=== PATIENT | male | born 1980 | race Two or more races ===

== ENCOUNTER 2017-08-01 19:22 | Emergency (ER) | payer MEDICAID ==
[~2017-08-01] VITALS: Ht 167.6 cm; Wt 127.0 kg
[2017-08-01] MEDS ORDERED: SODIUM CHLORIDE 0.9% 1,000 ML IVB ONE (19:42)
[2017-08-01 20:02] LABS: Urine Bacteria NONE SEEN /hpf (None Seen); Urine Blood Negative /uL (Negative); Urine Mucus FEW (None Seen); Urine Specific Gravity 1.005 (1.001-1.035); Urine WBC 1 /hpf (0 - 3)
[2017-08-01 20:13] LABS: Basophils # (auto) 0.1 uL; Basophils % (auto) 0.9 % (0.0-2.0); Eosinophils # (auto) 0.1 uL; Eosinophils % (auto) 1.1 % (0.0-7.0); Hematocrit 47.1 % (41.0-53.0); Hemoglobin 16.2 g/dL (13.5-17.5); Lymphocytes # (auto) 2.9 uL; Lymphocytes % (auto) 43.9 % (10.0-50.0); Mean Corpuscular Hemoglobin 33.8 pg (28.0-32.0); Mean Corpuscular Hgb Conc. 34.5 g/dL (32.0-36.0); Mean Corpuscular Volume 98.1 fL (80.0-100.0); Monocytes # (auto) 0.4 uL; Monocytes % (auto) 5.9 % (0.0-12.0); Neutrophils # (auto) 3.2 uL; Neutrophils % (auto) 48.2 % (37.0-80.0); Nucleated Red Blood Cells % 0.1 %; Platelet Count (auto) 184 10^3/uL (140-450); Red Cell Distribution Width 15.5 % (11.8-14.3); White Blood Cell 6.7 10^3/uL (4.4-10.8)
[2017-08-01 20:20] LABS: Amphetamine Screen, Urine NEGATIVE (NEGATIVE); Barbiturate Scree,Urine NEGATIVE (NEGATIVE); Benzodiazephine Screen, Urine NEGATIVE (NEGATIVE); Cannabinoid Screen, Urine NEGATIVE (NEGATIVE); Cocaine Screen, Urine NEGATIVE (NEGATIVE); Opiate Scree,Urine NEGATIVE (NEGATIVE); Phencyclidine Screen, Urine NEGATIVE (NEGATIVE)
[2017-08-01 20:26] LABS: Albumin 3.3 g/dL (3.4-5.0); BUN/Creatinine Ratio 10.4; Calcium 7.9 mg/dL (8.5-10.1); Potassium 3.6 mmol/L (3.5-5.1)
[2017-08-01 20:28] LABS: Bilirubin, Total 0.4 mg/dL (0.2-1.0); Total Protein 8.2 g/dL (6.4-8.2)
[2017-08-01] MEDS ORDERED: PANTOPRAZOLE 40 MG/10 ML VIAL IV ONE (21:00)
[2017-08-01] MEDS ORDERED: LORazepam 2MG/ML-1ML VIAL IV ONE (21:00)
[2017-08-01] MEDS ORDERED: MVI in SODIUM CHLORIDE 0.9% 1,010 ML ONE (21:05)
[2017-08-01] MEDS ORDERED: THIAMINE HCL 100 MG TAB ONE (21:06)
[2017-08-01 21:24] LABS: Amylase 25 U/L (25-115); Lipase 173 U/L (73-393); Magnesium 2.3 mg/dL (1.6-2.6)
[2017-08-01] MEDS ORDERED: THIAMINE HCL 100 MG TAB PO ONE (21:30)
[2017-08-01] MEDS ORDERED: NALBUPHINE HCL 10 MG/1ml INJECTION IV ONE (22:00)
[2017-08-01 22:45] VITALS: BP 128/91
[2017-08-02] MEDS ORDERED: THIAMINE INJ 100 MG, MULTIPLE VITAMIN 10 ML, FOLIC ACID 1 MG, MAGNESIUM SULF SDV 50% 8 ... IV SCH ×10 (12:00)
== END 2017-08-02 00:45 | disposition home or self-care (01) ==
LOC: EDBD 19:22 → ER 19:25
DX: F10.129 Alcohol abuse with intoxication, unspecified (principal); G92 Toxic encephalopathy; F41.1 Generalized anxiety disorder; F17.210 Nicotine dependence, cigarettes, uncomplicated; F32.9 Major depressive disorder, single episode, unspecified
CPT/HCPCS: 36415; 80053; 80307; 80320; 81001; 82150; 83690; 83735; 84484; 85025; 96361; 96365; 96366; 96375; 99285; C9113; J2060; J2300; J3411; J3475; J7030

== ENCOUNTER 2021-08-18 08:05 | Emergency (ER) | payer MEDICAID ==
[~2021-08-18] VITALS: Ht 170.2 cm; Wt 113.4 kg
[2021-08-18] MEDS ORDERED: CYCL-837 PO (09:57)
[2021-08-18] MEDS ORDERED: ACE3T PO (09:58)
[2021-08-18] MEDS ORDERED: KETOROLAC TROMETH 60MG/2ML VIAL IM ONE (10:00)
[2021-08-18 10:58] VITALS: BP 116/82
== END 2021-08-18 11:01 | disposition home or self-care (01) ==
LOC: ER 08:05
DX: M54.42 Lumbago with sciatica, left side (principal); F17.210 Nicotine dependence, cigarettes, uncomplicated
CPT/HCPCS: 72100; 96372; 99283; J1885

== ENCOUNTER 2022-07-14 08:07 | Emergency (ER) | payer MEDICAID ==
[~2022-07-14] VITALS: Ht 170.2 cm; Wt 112.0 kg
[~2022-07-14 08:07] MED LIST: ACE3T PO; CYCL-837 PO
[2022-07-14] MEDS ORDERED: ASPirin 81 mg TAB PO ONE (08:30)
[2022-07-14 08:35] LABS: Basophils # (auto) 0.1 10 ^3/uL (0-0.2); Basophils % (auto) 0.7 % (0.0-2.0); Eosinophils # (auto) 0.1 10 ^3/uL (0-0.8); Eosinophils % (auto) 1.4 % (0.0-7.0); Hematocrit 45.8 % (41.0-53.0); Lymphocytes # (auto) 1.5 10 ^3/uL (0.4-5.4); Lymphocytes % (auto) 18.1 % (10.0-50.0); Mean Corpuscular Hemoglobin 32.8 pg (28.0-32.0); Mean Corpuscular Hgb Conc. 34.9 g/dL (32.0-36.0); Mean Corpuscular Volume 94.2 fL (80.0-100.0); Monocytes # (auto) 0.5 10 ^3/uL (0-1.3); Monocytes % (auto) 6.3 % (0.0-12.0); Neutrophils # (auto) 6.1 10 ^3/uL (1.6-8.6); Neutrophils % (auto) 73.5 % (37.0-80.0); Nucleated Red Blood Cells % 0.1 %; Red Blood Cells 4.87 10^6/uL (4.5-5.90); Red Cell Distribution Width 13.2 % (11.8-14.3); White Blood Cell 8.3 10^3/uL (4.4-10.8)
[2022-07-14 08:54] LABS: Urine WBC None Seen /hpf (0 - 3)
[2022-07-14 09:15] LABS: Albumin 4.2 g/dL (3.4-5.0); Calcium 8.9 mg/dL (8.5-10.1); Potassium 4.2 mmol/L (3.5-5.1)
[2022-07-14 09:19] LABS: Urine Bacteria NONE SEEN /hpf (None Seen); Urine Blood Negative /uL (Negative); Urine Mucus FEW (None Seen); Urine Specific Gravity 1.021 (1.001-1.035)
[2022-07-14 09:20] LABS: BUN/Creatinine Ratio 13.3; Bilirubin, Total 1.9 mg/dL (0.2-1.0); Total Protein 7.5 g/dL (6.4-8.2)
[2022-07-14 10:19] VITALS: BP 104/68
== END 2022-07-14 10:20 | disposition home or self-care (01) ==
LOC: ER 08:07
DX: R07.89 Other chest pain (principal); F41.8 Other specified anxiety disorders; F17.210 Nicotine dependence, cigarettes, uncomplicated; Z79.899 Other long term (current) drug therapy
CPT/HCPCS: 36415; 71045; 80053; 81001; 84484; 85025; 93005